=== PATIENT | male | born 1985 | race Caucasian/White ===

== ENCOUNTER 2017-05-02 16:34 | Emergency (ER) | payer SELFPAY ==
--- NOTE | 2017-05-06 19:14 | ER ---
ADMIT: 05/02/2017 RM/LOC: ER [facility] MR#: [id number] [facility] [address] [place], [place] [id number] [address] [address] Emergency Room Report SEX: M AGE: 32 : 1985 DATE: 05/02/2017 HISTORY OF PRESENT ILLNESS: The patient is a 32-year-old male with no past medical history, came to the ER with chief complaint of right anterior chest pain, which is pleuritic for the last 3 days and also periumbilical pain, which is also for 3 days. The patient had 1 episode of loose stool today, but states after that did not pass gas. The patient states at the moment, pain is periumbilical and states that is [id number] in severity and there is no radiation. The patient denies similar symptoms in the past. The patient denies any loss of appetite, the patient tolerated p.o., and denies nausea or vomiting. Chest pain is intermittent and at the moment is not present. PHYSICAL EXAMINATION: VITAL SIGNS: The patient was afebrile and in minimal distress, respiratory rate was 20, heart rate was 81, blood pressure was normal at 135/85. HEAD and NECK: Normal. CHEST: Clear bilaterally. No tenderness. No wheezing or rhonchi. HEART: Normal heart sounds. ABDOMEN: Had very mild tenderness on the periumbilical area without any rebound. Normal bowel sounds. The rest of the physical examination is noncontributory and negative. LABORATORY DATA AND IMAGING: Chest x-ray was negative for any abnormalities or acute changes. The patient had 6.1 white blood cell with hemoglobin of 16 and platelet of 368. Sodium was 141 with potassium of 3.6 and glucose of 95 and creatinine of 0.8. Lipase was normal with 126, and AST and ALT were also noncontributory with 24 and 49 respectively. Urine was positive for 2 white blood cells and [address] scan for renal protocol was negative for kidney stone, but was questionable for prominent pancreas and also mild fluid in the tip of the appendix without any obvious signs of appendicitis. After talking to the radiologist, the radiologist believes that if the symptoms persist or comes back, it could be the beginning of the appendicitis. The case was discussed with the patient. At the moment, the patient is symptom-free and the patient was discharged to home with return precautions, follow up with the primary doctor. Plan was discussed with the patient, and he agreed with it. Rajesh Mckeon MD/ marlon JOB #: [id number] CC: Boston Hyatt MD, Attending Physician UNKNOWN, Family Physician
== END 2017-05-02 19:50 | disposition home or self-care (01) ==
LOC: ER 16:34
DX: R10.33 Periumbilical pain (principal)